=== PATIENT | female | born 1970 | race Caucasian/White ===

== ENCOUNTER 2016-03-01 06:23 | Emergency (ER) | payer OTHER ==
[~2016-03-01] VITALS: Ht 160 cm; Wt 54.0 kg
[~2016-03-01 06:23] MED LIST: ACET-749 PO; DESO1TAB7 PO; HYDR1TAB2 PO; HYDR25SU20 PR; LORA-741 PO; MULTTAB PO; PENI-82 PO
[2016-03-01 06:27] VITALS: TEMP 36.7; Ht 160 cm; Wt 54.0 kg
[2016-03-01 07:21] VITALS: BP 112/70; PULSE 60; O2SAT 99
--- NOTE | 2016-03-01 09:08 | EMERGENCY ROOM VISIT NOTE ---
History Report prepared by Griselda: Lori Shoemaker Under the Supervision of: Dr. Spencer Arreola D.O. First contact with patient: 06:37 Chief Complaint: RASH Stated Complaint: RASH History of Present Illness The patient is a 45 year old female who presents to the Emergency Room with complaints of a worsening rash that started 3 days ago. The patient states that the rash is on her hands and feet. It is worse on her hands. She noticed that the rash worsened this morning after washing and drying her hands. The rash was pruritic yesterday but she states that it does not feel pruritic today. She states that she first noticed the rash 3 days ago when there was a spot on her left ring finger. The patient is also experiencing a sore throat but she states that she was sick last week. She attempted to drain the spot because she did not know what it was. Otherwise, none of the rash has drained on its own. The patient is unsure where she got the rash but she researched it on the internet and believes that she has hand, foot, and mouth Source of History: patient Onset: 3 days ago Position: hand (bilateral), foot (bilateral) Quality: other (rash) Timing: worsening Associated Symptoms: + sorethroat Note: pruritus yesterday but none today Review of Systems See HPI for pertinent positives & negatives. A total of 10 systems reviewed and were otherwise negative. Past Medical & Surgical Surgical Problems: (1) H/O lumpectomy (2) History of ear surgery (3) Hx of tonsillectomy Family History Cancer Hypertension Lung disease Social History Smoking Status: Never Smoker Current/Historical Medications No Active Prescriptions or Reported Meds Allergies Coded Allergies: No Known Allergies (Verified , 03/01/16) Physical Exam Vital Signs Date Time Temp Pulse Resp B/P Pulse Ox O2 Delivery O2 Flow Rate FiO2 03/01/16 07:21 60 18 112/70 99 03/01/16 06:27 36.7 66 18 116/77 100 Room Air Physical Exam CONSTITUTIONAL/VITAL SIGNS: Reviewed / noted above. GENERAL: Non-toxic in appearance. INTEGUMENTARY: Warm, dry, and [place]. Blanching punctate macular rash on bilateral hands and feet. HEAD: Normocephalic. EYES: without scleral icterus or trauma. ENT/OROPHARYNX: clear and moist. Macular rash with small vesicles in posterior oropharynx. LYMPHADENOPATHY/NECK: Is supple without lymphadenopathy or meningismus. RESPIRATORY: Lungs clear and equal. CARDIOVASCULAR: Regular rate and rhythm. GI/ABDOMEN: Soft and nontender. No organomegaly or pulsatile mass. No rebound or guarding. Normal bowel sounds. EXTREMITIES: Warm and well perfused. Blanching punctate macular rash on bilateral hands and feet. BACK: No CVA tenderness. NEUROLOGICAL: Intact without focal deficits. PSYCHIATRIC: normal affect. MUSCULOSKELETAL: Normally developed with good muscle tone. Medical Decision & Procedures ED Course 0647: Previous medical records were reviewed. The patient was evaluated in room B10. A complete history and physical examination was performed. 0700: On reevaluation, the patient is doing well. I discussed the results and findings with the patient. She verbalized agreement of the treatment plan. She was discharged home. Medical Decision Differential includes viral syndrome, hand, foot, and mouth disease, strep pharyngitis, bacterial infection. This is a 45-year-old female who presents to the ED with the above rash. The patient has a vesicular/macular rash in her throat as well as a macular rash on her hands and feet. This is consistent with a hand foot and mouth syndrome. The patient has had the symptoms for about 3-4 days. 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 She was given off the next 4 days of work as to not infect the babies. Symptomatic care recommended. Impression Primary Impression: Hand, foot and mouth disease Scribe Attestation The scribe's documentation has been prepared under my direction and personally reviewed by me in its entirety. I confirm that the note above accurately reflects all work, treatment, procedures, and medical decision making performed by me. Departure Information Dispostion Home / Self-Care Prescriptions No Active Prescriptions or Reported Meds Referrals Arminda Madsen MD (PCP) Forms HOME CARE DOCUMENTATION FORM, IMPORTANT VISIT INFORMATION, WORK / SCHOOL INSTRUCTIONS Patient Instructions A Signature Page, Disease Hand Foot Mouth Ch, My [facility] Additional Instructions Tylenol/Motrin for fevers or pain. May return to work on Wednesday.
== END 2016-03-01 07:22 | disposition home or self-care (01) ==
LOC: C.EDB 06:26
DX: B08.4 Enteroviral vesicular stomatitis with exanthem (principal); Z98.890 Other specified postprocedural states; Z90.89 Acquired absence of other organs; Z80.9 Family history of malignant neoplasm, unspecified; Z82.49 Family history of ischemic heart disease and other diseases of the circulatory system; Z83.6 Family history of other diseases of the respiratory system

== ENCOUNTER → 2016-09-09 | Outpatient (CLI) | payer OTHER ==
--- NOTE | 2016-09-09 15:37 | MAMMOGRAPHY REPORT ---
BILATERAL DIGITAL SCREENING MAMMOGRAM TOMOSYNTHESIS WITH CAD: 09/09/2016 CLINICAL HISTORY: Routine screening. TECHNIQUE: Breast tomosynthesis in addition to standard 2D mammography was performed. Current study was also evaluated with a Computer Aided Detection (CAD) system. COMPARISON: Comparison is made to exams dated: 09/06/2015 mammogram, 09/04/2014 mammogram, 07/19/2013 amber mogram, and 07/08/2012 mammogram - [facility]. BREAST COMPOSITION: The tissue of both breasts is extremely dense, which lowers the sensitivity of m ammography. FINDINGS: No suspicious masses, calcifications, or areas of architectural distortion are noted in ei ther breast. There has been no significant interval change compared to prior exams. Bilateral benign -appearing calcifications are not significantly changed. A linear scar marker denotes a scar on the right upper outer breast. IMPRESSION: ACR BI-RADS CATEGORY 2: BENIGN There is no mammographic evidence of malignancy. A 1 year screening mammogram is recommended. The pa tient will receive written notification of the results. Approximately 10% of breast cancers are not detected with mammography. A negative mammographic report should not delay biopsy if a clinically suggestive mass is present. Alma Delia Encarnacion M.D. ah/:09/09/2016 09:20:05 Cardiac Cath Lab Radiology Technologist: Radha PATINO(R)(), [facility] letter sent: Normal 1/2 BI-RADS Code: ACR BI-RADS Category 2: Benign
== END | disposition home or self-care (01) ==
LOC: C.MAMM 08:46
PROVIDERS: ATTEND Obstetrics & Gynecology
DX: Z12.31 Encounter for screening mammogram for malignant neoplasm of breast (principal)

== ENCOUNTER → 2016-10-04 | Outpatient (CLI) | payer OTHER ==
[2016-10-04 09:41] LABS: BLOOD UREA NITROGEN 10 mg/dl (7-18); BUN/CREATININE RATIO 11.8 (10-20); CARBON DIOXIDE 30 mmol/L (21-32); CHLORIDE 107 mmol/L (98-107); CHOLESTEROL 151 mg/dl (0-200); CREATININE 0.84 mg/dl (0.60-1.20); GLUCOSE 87 mg/dl (70-99); POTASSIUM 4.4 mmol/L (3.5-5.1); SODIUM 140 mmol/L (136-145)
[2016-10-04 09:44] LABS: CHOLESTEROL/HDL RATIO 2.6; HDL CHOLESTEROL 57 mg/dl; LDL CHOLESTEROL CALCULATED 74 mg/dl; TRIGLYCERIDES 99 mg/dl (0-150); VERY LOW DENSITY LIPOPROT CALC 20 mg/dl
== END | disposition home or self-care (01) ==
LOC: C.LAB 08:34
PROVIDERS: ATTEND Nurse Practitioner Adult Health
DX: Z13.1 Encounter for screening for diabetes mellitus (principal); Z13.220 Encounter for screening for lipoid disorders

== ENCOUNTER → 2017-10-13 | Outpatient (CLI) | payer OTHER | END | disposition home or self-care (01) | LOC: C.LAB 07:01 | PROVIDERS: ATTEND Nurse Practitioner Family | DX: Z00.00 Encounter for general adult medical examination without abnormal findings (principal) ==